=== PATIENT | male | born 1955 | race Two or more races ===

== ENCOUNTER 2024-11-18 10:32 | Outpatient (CLI) | payer MEDICARE, OTHER | END 2024-11-18 23:50 | disposition home or self-care (01) | LOC: MSC 10:32 | PROVIDERS: ATTEND Internal Medicine | DX: I10 Essential (primary) hypertension (principal); E78.5 Hyperlipidemia, unspecified; E78.1 Pure hyperglyceridemia; M62.81 Muscle weakness (generalized) ==

== ENCOUNTER 2025-01-13 10:43 | Outpatient (CLI) | payer MEDICARE, OTHER | END 2025-01-13 23:59 | disposition home or self-care (01) | LOC: WOU 10:43 | PROVIDERS: ATTEND Student in an Organized Health Care Education/Training Program | DX: M79.672 Pain in left foot (principal); E11.40 Type 2 diabetes mellitus with diabetic neuropathy, unspecified; M20.42 Other hammer toe(s) (acquired), left foot; M72.2 Plantar fascial fibromatosis; M25.372 Other instability, left ankle; I10 Essential (primary) hypertension | CPT/HCPCS: 11721; G0463 ==

== ENCOUNTER 2025-01-14 09:26 | Outpatient (CLI) | payer MEDICARE, OTHER ==
[2025-01-14 10:54] LABS: APPEARANCE,URINE CLEAR (CLEAR); BLOOD, URINE NEGATIVE Ery/uL (NEGATIVE); LEUKOCYTE ESTERASE ,URINE NEGATIVE (NEGATIVE); NITRITE, URINE NEGATIVE (NEGATIVE); PLATELET COUNT (AUTO) 341 K/uL (150-450); RED BLOOD CELL COUNT(AUTO) 4.97 MIL/uL (4.5-6.0); RED CELL DISTRIBUTION WIDTH 13.6 % (11.5-15.0); UGLUCOSE NEGATIVE (NEGATIVE); WHITE BLOOD COUNT (AUTO) 8.5 K/uL (4.3-11.0)
[2025-01-14 10:58] LABS: ASPARTATE AMINOTRANSFERASE 14.0 U/L (15-37); CALCIUM, SERUM 9.1 mg/dL (8.5-10.1); CREATININE 0.9 mg/dL (0.6-1.3); SODIUM SERUM 140.0 mmol/L (136-145); TOTAL PROTEIN, SERUM 8.6 g/dL (6.4-8.2); UREA NITROGEN, BLOOD 9.0 mg/dL (7-18)
[2025-01-14 11:05] LABS: INR 0.98 (0.91-1.10)
== END 2025-01-14 23:59 | disposition home or self-care (01) ==
LOC: LAB 09:26
PROVIDERS: ATTEND Internal Medicine
DX: I12.9 Hypertensive chronic kidney disease with stage 1 through stage 4 chronic kidney disease, or unspecified chronic kidney disease (principal); N18.9 Chronic kidney disease, unspecified; N40.0 Benign prostatic hyperplasia without lower urinary tract symptoms; E11.22 Type 2 diabetes mellitus with diabetic chronic kidney disease
CPT/HCPCS: 36415; 80053-TC; 85025-TC; 85610-TC; 85730-TC